=== PATIENT | male | born 1940 | race Caucasian/White ===

== ENCOUNTER 2025-02-12 15:43 | Inpatient (IN) | payer MEDICARE, SELFPAY ==
[2025-02-11 23:32] VITALS: BP 121/74
[2025-02-12] VITALS (19 sets, daily range): BP systolic 91–126; BP diastolic 59–82; PULSE 101–110; O2SAT 94; BMI 22.4
--- NOTE | 2025-02-12 00:36 | ED.GENMED ---
History of Present Illness
General
Chief Complaint: Catheter/Tube Problem
Source: patient and records
Exam Limitations: altered mental status and dementia
Time Seen by Provider: 02/11/25 23:51
Nursing documentation reviewed up to this point in time: agreed with
History of Present Illness
History of Present Illness:
85-year-old male from local group home presents with a dislodged Ambriz catheter report was workup nursing found him to be in a wide tachycardic rhythm apparently has an AICD, prior records from here reviewed never been at [facility] before patient
not really able to offer much history
RN reports that the catheters been out for about 20 hours, she was able to replace it without any difficulty, has had 2 episodes of emesis here, apparently amiodarone has been held,
Past History
Past History
ED Past Medical History: Arrthythmia and HTN
Social History
Tobacco: Non-smoker
Alcohol: None
Drug: None
Living: group home
Employment: Not employed
Review of Systems
Review of Systems
Other source history: transfer record
All Other Systems: Not applicable
Phy Exam
Physical Exam
Physical Exam:
Physical Exam
General: Elderly male chronically ill-appearing
Neck: Dry lips vomit on his henry
Heart: Tachycardic
Lungs: Basilar crackles
Abdomen: Nontender
Neuro: Confused
Skin: no rash
Psychiatric: Flat affect
Extremities: no edema.
Course
Orders/Labs/Results
Orders:
Orders
02/12/25 00:02
Ambriz Placement- Treatment ONCE
Reason for insertion: Outlet obstruction
02/12/25 00:31
Electrocardiogram (*1) Urgent
Reason for Study: Abdominal Pain
EKG- Treatment ONCE
02/12/25 00:36
Complete Blood Count/With Diff Urgent
Comprehensive Metabolic Panel Urgent
Magnesium Urgent
Troponin I Urgent
02/12/25 00:48
Lidocaine 2% [Lidocaine Uro-Jet 2%] 1 syringe .ROUTE .[facility]
02/12/25 01:20
CR Chest - 2 Views Urgent
Comment:
Reason For Exam: wbc count up
02/12/25 01:39
0.9% Sodium Chloride 1000 ml [Nss] 1,000 ml IV BOLUS
02/12/25 01:40
Magnesium Sulfate 1 G/D5w [Magnesium Sulfate] 1 gm in 100 ml IV NOW
02/12/25 01:41
Urinalysis Reflex To Culture Urgent
Date Specimen was Collected: 02/12/25
Time Specimen was Collected: 02:02
02/12/25 01:45
Blood Culture Q30M
JENSEN Source: Blood/Venous
Specimen Description:
02/12/25 02:15
Blood Culture Q30M
JENSEN Source: Blood/Venous
Specimen Description:
Abnormal Lab Results
02/12/25
00:36
WBC 23.5 H 10^3/uL
(4.8-10.8)
RBC 3.76 L 10^6/uL
(4.70-6.10)
Hgb 11.5 L g/dL
(13.0-18.0)
Hct 35.4 L %
(39.0-52.0)
MCV 94.1 H fL
(80.0-94.0)
MCHC 32.5 L g/dL
(33.0-37.0)
Abs Immat Gran (auto) 0.1 H 10^3/uL
(0-0.05)
Absolute Neuts (auto) 22.3 H 10^3/uL
(1.4-6.5)
Absolute Lymphs (auto) 0.5 L 10^3/uL
(1.2-3.4)
Neutrophils % 95.2 H %
(42.2-75.2)
Lymphocytes % 2.3 L %
(20.5-51.1)
BUN 31 H mg/dl
(9-20)
Creatinine 2.4 H mg/dL
(0.7-1.3)
Glucose 165 H mg/dl
(70-99)
Calcium 8.3 L mg/dl
(8.4-10.2)
Total Bilirubin 1.4 H mg/dl
(0.2-1.3)
Albumin 3.1 L g/dl
(3.5-5.0)
02/12/25 00:36
02/12/25 00:36
Vital Signs
Initial and Last Documented VS:
Initial Vital Signs
Temp Pulse Resp BP Pulse Ox
98.1 F 118 22 121/74 100
02/11/25 23:32 02/11/25 23:32 02/11/25 23:32 02/11/25 23:32 02/11/25 23:32
Last Documented Vital Signs
Temp Pulse Resp BP Pulse Ox
98.1 F 112 21 111/80 97
02/11/25 23:32 02/12/25 01:42 02/12/25 01:42 02/12/25 01:42 02/12/25 01:02
*Pulse Oximetry
SaO2: 97
Oxygen Mode of Delivery: Room air
Patient hypoxic: no
*EKG
Interpreted by ED Provider?: Yes
Interpretation: abnormal
Comparison EKG: no comparison EKG present
Heart Rate: 108
Rate: tachycardiac
Rhythm: other (Wide-complex SVT with aberrancy versus VT)
[place]: normal axis
Ischemia: non-specific ST changes
*Patent Drafter Interpretation
Rate: tachycardiac
Interpretation: abnormal
Heart Rate: 108
Rhythm: sinus
*Critical Care Note
Total Time (30-74mins, 75-104mins- exclusive of procedures): Not Applicable
Update Note
Update Note:
1:40 AM update blood pressure now in the 90s, creatinine noted white count noted will start saline hydration check chest x-ray urinalysis blood cultures
Apparently amiodarone was held recently, apparently patient is DNR status
White count up, interrogation received from Juv Acessórios
ED Attending Note
-
Portions of this chart may have been created with voice recognition software.� Occasional wrong word or��sound alike� substitutions may have occurred due to the inherent limitations of voice recognition software.
Discharge Plan
Departure
Patient Disposition: Admit
Date of Disposition: 02/12/25
Time of Disposition: 02:18
Admit to: Telemetry
Presentation/result/management discussed w/ accepting MD/DO: Hospitalist
Patient with high blood pressure during this ER visit?: No
Discharge Problem:
Leukocytosis, Tachycardia
Prescriptions:
No Action
sennosides [senna] 8.6 mg Tablet
17.2 mg PO HS
polyethylene glycol 3350 [Miralax] 17 gram Powder In Packet
17 g PO DAILY
midodrine 5 mg Tablet
15 mg PO TID
pantoprazole 20 mg Tablet,Delayed Release (Dr/Ec)
20 mg PO DAILY
metoprolol succinate 25 mg Tablet Extended Release 24 Hr
25 mg PO DAILY
fluticasone propionate 50 mcg/actuation [place],Suspension
2 spray INTRANASAL DAILY PRN (Reason: Reduction Of Transepidermal Water Loss)
fludrocortisone 0.1 mg Tablet
0.1 mg PO MOWEFR
finasteride 5 mg Tablet
5 mg PO DAILY
carboxymethylcellulose Granules
1 ea MISCELLANEOUS QID
Rx Instructions:
0.5%
dabigatran etexilate 150 mg Capsule
150 mg PO BID
Referrals:
Kennedy Alejandro, [Family Provider, Internal Medicine]
Interventions
Interventions:
*General Assessment Last Done: 02/11/25 23:30
*ED COVID-19 Vaccine History Last Done: 02/11/25 23:30
*ED Influenza Vaccine History Last Done: 02/11/25 23:30
[facility] Risk Assessment Tool Last Done: 02/12/25 01:00
*Risk Screen - Suicide (C-SSRS) Last Done: 02/11/25 23:32
AS-Ufnpmf-Urblhhzlbb Assessment Last Done: 02/11/25 23:30
ED-Male Genitourinary Assessment Last Done: 02/11/25 23:30
Discharge Date and Time
Print Language: NEPALI
[2025-02-12 01:08] LABS: Hematocrit 35.4 % (39.0-52.0); Hemoglobin 11.5 g/dL (13.0-18.0); Mean Corp Hgb Conc. 32.5 g/dL (33.0-37.0); Mean Corpuscular Volume 94.1 fL (80.0-94.0); Platelet Count 390 10^3/uL (130-400); Red Cell Dist. Width 13.6 % (11.5-14.5)
[2025-02-12 01:19] LABS: Troponin I 0.016 ng/ml
[2025-02-12 01:32] LABS: AST (SGOT) 22 U/L (17-59); Albumin 3.1 g/dl (3.5-5.0); Alkaline Phosphatase 98 U/L (38-126); Blood Urea Nitrogen 31 mg/dl (9-20); Calcium 8.3 mg/dl (8.4-10.2); Carbon Dioxide 24 mmol/L (22-30); Chloride 101 mmol/L (98-107); Glucose 165 mg/dl (70-99); Magnesium 1.7 mg/dl (1.6-2.3); Potassium 4.8 mmol/L (3.5-5.1); Sodium 136 mmol/L (135-145); Total Protein 6.5 g/dl (6.3-8.2); eGFR 26.12
[2025-02-12 01:39] LABS: ALT (SGPT) 21 U/L (0-50)
[2025-02-12 01:57] LABS: Nucleated Red Blood Cells % 0 % (-)
[2025-02-12] MEDS: NSS 1000 IV ×2 (02:23→11:06)
[2025-02-12] MEDS: MAGNESIUM SULFATE 100 IV (02:37)
[2025-02-12 03:00] LABS: Urine Character Cloudy (Clear)
--- NOTE | 2025-02-12 03:09 | HPS.HSE ---
Family Physician
-
Family Physician: Kennedy Alejandro, DO
Chief Complaint
-
Wide-complex tachycardia
History of Present Illness
Patient is a 84-year-old with past medical history significant for essential hypertension, cardiomyopathy, paroxysmal atrial fibrillation, status post biventricular AICD and defibrillator, on anticoagulation with dabigatran, BPH, orthostatic
hypotension brought to the emergency department after he pulled out his catheter at the [facility] [employer] [facility].
The nursing staff had difficulty inserting the urinary cath, patient had some bleeding after I pulled out the catheter. Was sent to the emergency department. With when he was being sent to the emergency department he was noticed to be in
wide-complex tachycardia.
Patient was recently admitted to [facility] [place] with obstructive uropathy status post placement of indwelling urinary catheter. He is to follow-up with urology. Was also found to be in orthostatic hypotension had medication changes including
discontinuation of amiodarone Jardiance losartan and tamsulosin. Patient was then placed on finasteride fludrocortisone and midodrine. He was continued on tamsulosin and Lasix was placed on hold. He was continued on metoprolol succinate and his
anticoagulation with dabigatran.
Patient was admitted to [facility] on 1222. At a time he was noted to have DEANDRE secondary to obstructive uropathy, BPH, chronic heart failure, GERD hyperlipidemia, cardiomyopathy, atrial fibrillation, known left bundle and orthostatic
hypotension.
In the emergency department blood pressure was 118/80 with a pulse rate of 112 and oxygen saturation of 97% on room air. ECG shows failure rate and rhythm with a rate of 125 wide-complex tachycardia. Suspect SVT with aberrancy, however no prior
ECGs for comparison. Troponin is negative. He does have a white count of 23 with normal movement and platelets. Electrolytes were normal. BUN and creatinine were 31 and 2.4 with no priors to compare. Glucose was normal.
Patient's UA was positive for leukocyte esterase and some blood but does have a urinary catheter. Chest x-ray is clear.
Medical History
Past Medical History
Past Medical History: Reports Other
Additional Past Medical History:
Atrial fibrillation on anticoagulation
Status post biventricular pacemaker and AICD
Cardiomyopathy
Essential hypertension
Orthostatic hypotension
BPH with obstructive uropathy status post indwelling urinary cath
History of syncope and collapse
History of sick sinus syndrome
Gout
DEANDRE on CKD
Past Surgical History: Reports Other
Social History
Tobacco: Non-smoker
Alcohol: Occasional
Drug: None
Living: [facility]
Family History
Family History: Not pertinent
Allergies / Home Medications
Allergies reflects when Allergies were last updated in [facility].
Home Medications with original date entered in [facility]
Allergy/Medication List:
Allergies
Allergy/AdvReac Type Severity Reaction Status Date / Time
YOHANA Inhibitors Allergy Unknown Verified 02/11/25 23:42
Home Medications
carboxymethylcellulose 1 ea miscellaneous QID 02/12/25
dabigatran etexilate 150 mg capsule 150 mg PO BID 02/12/25
finasteride 5 mg tablet 5 mg PO DAILY 02/12/25
fludrocortisone 0.1 mg tablet 0.1 mg PO MOWEFR 02/12/25
fluticasone propionate 50 mcg/actuation nasal spray,suspension 2 spray intranasal DAILY PRN Reduction Of Transepidermal Water Loss 02/12/25
metoprolol succinate 25 mg tablet,extended release 24 hr 25 mg PO DAILY 02/12/25
midodrine 5 mg tablet 15 mg PO TID 02/12/25
pantoprazole 20 mg tablet,delayed release 20 mg PO DAILY 02/12/25
polyethylene glycol 3350 17 gram oral powder packet (Miralax) 17 g PO DAILY 02/12/25
sennosides 8.6 mg tablet (senna) 17.2 mg PO HS 02/12/25
Review of Systems
-
Constitutional: Reports No Symptoms
EENT: Reports No Symptoms
Respiratory: Reports No Symptoms
Cardiac: Reports No Symptoms
Abdomen/GI: Reports No Symptoms
: Reports No Symptoms
Musculoskeletal: Reports No Symptoms
Skin: Reports No Symptoms
Neurological: Reports No Symptoms
Endocrine: Reports No Symptoms
Hematologic/Lymphatic: Reports No Symptoms
Psych: Reports No Symptoms
Physical Exam
Vital Signs
Vital Signs
Temp Pulse Resp BP Pulse Ox
98.1 F 112 21 111/80 97
02/11/25 23:32 02/12/25 01:42 02/12/25 01:42 02/12/25 01:42 02/12/25 01:02
Physical Exam
General: Well Developed, Well Nourished and No Apparent Distress
HEENT: NormoCephalic, Moist mucous membranes and Atraumatic
Respiratory: Clear
Cardiac: S1/S2, Irregular Rhythm and Tachycardia; No Murmur or Rub
GI: Soft, Non Tender, Non Distended and Normal Bowel Sounds; No Organomegaly
Rectal: Deferred by Provider
Genito-urinary: Ambriz
Musculoskeletal: No Clubbing, No Cyanosis and No Edema
Skin: No Rash
Neuro: Alert, Oriented (oriented to person, year and to place currently, slightly confused but able to follow instructions and following conversation. 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
No Slurred Speech or Facial Droop
Hematologic/Lymphatic: No Lymphadenopathy
Psych: Calm
Laboratory Results
-
02/12/25 00:36
02/12/25 00:36
Laboratory Results
Total Bilirubin 1.4 mg/dl (0.2-1.3) H 02/12/25 00:36
AST 22 U/L (17-59) 02/12/25 00:36
ALT 21 U/L (0-50) 02/12/25 00:36
Alkaline Phosphatase 98 U/L (38-126) 02/12/25 00:36
Troponin I 0.016 ng/ml 02/12/25 00:36
Data Reviewed
-
Diagnostic Radiology: Image Personally Visualized and interpreted
Medical Tests (Nuc Med, Echo, EKG etc): Image Personally Visualized and interpreted
Lab Data: Labs Reviewed by me
Old Records: Reviewed
Impression/Plan
-
IMPRESSION:
Disease a 85-year-old male who [facility] after pulling out his urinary cath development some bleeding and having difficulty with [facility] of [facility]. Had an episode of nausea
vomiting during the procedure. He is now in the emergency department and is noted to have a history of DEANDRE, obstructive uropathy status post chronic indwelling catheter, atrial fibrillation with left bundle branch block. In the ED he was found to
be in wide-complex tachycardia. ECG shows in the undetermined rhythm at a rate in the 125. Per my read and according to the interrogation of this AICD PPM he has a SVT with aberrancy likely secondary to atrial fibrillation. Notable findings chest
x-ray that is clear, leukocytosis to 23.5, UA with positive blood and trace leukocyte esterase but no active urinary symptoms, labs were unremarkable with a BUN and creatinine of 31 and 2.4. He was given magnesium in the ED. His rate is now in the
normal range but still irregular consistent with a atrial fibrillation. He is also intermittently paced.
PLAN:
Wide-complex tachycardia�suspect atrial fibrillation with intermittent pacing and known left bundle. No chest pain, troponin is negative. He denies any current dizziness or lightheadedness or while sitting or laying down
� Admit to telemetry observation
� It is of note that the patient amiodarone was discontinued on his recent admission and the reason is unclear, he was taken to 100 mg daily, metoprolol was changed and is now currently taking 12.5 mg daily
� It is possible that the changes seen in his medications has resulted in increased rate
� Will continue his metoprolol 12.5 mg p.o. for now
� Continue to hold the amiodarone
� Continue dabigatran 5 150 mg twice daily for now
� Cardiology consultation
Leukocytosis�patient with a white count of 23.5,
� Urine culture sent
� Blood culture sent
� Patient is afebrile, has no acute urinary symptoms and chest x-ray is clear
� I am not seeing a source of an active infection at this time, we will hold off on antibiotics
CHF
� Patient did receive 1 L of normal saline on arrival
� Continue to hold furosemide for now
� Continue to hold losartan
� Continue metoprolol as above
Orthostatic hypotension
� Continue fludrocortisone and midodrine
DVT prophylaxis�on dabigatran
CODE STATUS�full code
[2025-02-12 05:29] LABS: Urine Red Blood Cell >100 /HPF (0-2); Urine White Cell >100 /HPF (0-5)
--- NOTE | 2025-02-12 05:34 | PTCARENOTE ---
received pt from ED. pt pulled over from stretcher to bed. pt A&O x 2, disoriented to place. pt offers no current complaints and appears comfortable in bed. bed alarm plugged in, call lindsey in reach. plan of care ongoing.
[2025-02-12 08:04] LABS: Hematocrit 30.8 % (39.0-52.0); Hemoglobin 10.2 g/dL (13.0-18.0); Mean Corp Hgb Conc. 33.1 g/dL (33.0-37.0); Mean Corpuscular Volume 92.5 fL (80.0-94.0); Platelet Count 311 10^3/uL (130-400); Red Cell Dist. Width 13.8 % (11.5-14.5)
[2025-02-12 08:12] LABS: Blood Urea Nitrogen 29 mg/dl (9-20); Calcium 7.9 mg/dl (8.4-10.2); Carbon Dioxide 24 mmol/L (22-30); Chloride 104 mmol/L (98-107); Estimated Creatinine Clearance 35 ml/min; Glucose 135 mg/dl (70-99); Magnesium 2.0 mg/dl (1.6-2.3); Potassium 4.5 mmol/L (3.5-5.1); Sodium 134 mmol/L (135-145); eGFR 36.89
[2025-02-12] MEDS: PROSCAR 5 MG PO (08:39)
[2025-02-12] MEDS: PROTONIX 20 MG PO (08:39)
[2025-02-12] MEDS: PRADAXA 150 MG PO ×2 (08:39→20:48)
[2025-02-12] MEDS: TOPROL XL 12.5 MG PO (08:40)
[2025-02-12] MEDS: MIRALAX 17 GRAMS PO (08:40)
[2025-02-12] MEDS: FLORINEF 0.1 MG PO (08:41)
--- NOTE | 2025-02-12 09:49 | CON.CAR ---
Addendum entered and electronically signed by Brenda Redd MD 02/12/25 11:08:
I saw and examined the patient.
The Rn Liaison's note was reviewed and I agree with the note.
Comment: Patient undergoing echocardiogram when I evaluated him. He is unable to give a history. History obtained from medical records and also from his sister. He presented to the emergency department with issues regarding his Johnson catheter.
He has had a hospital stay at [facility] for which we requested records. He has ICD in place. Atrial fibrillation which is paroxysmal on oral anticoagulation. Recently amiodarone has been discontinued, unclear why. Ejection fraction unknown if
patient undergoing echo. Consult for wide-complex tachycardia which is atrial fibrillation with increased rates. No ventricular tachycardia noted on [employer] biventricular ICD download/check.
Of note he has history of severe orthostasis.
Atrial fibrillation with rapid ventricular response
Continue oral anticoagulation
Continue low-dose Toprol-XL
Obtain records from line cannot discharge there is no listed allergy to amiodarone on records that we can find. Start amiodarone 200 mg orally twice daily for rate control of atrial arrhythmia
Orthostatic hypotension
Continue supportive care with midodrine and Florinef
Follow volume status
Caution with changing position
Chronic heart failure with unknown ejection fraction
Await echocardiogram
Biventricular ICD
Interrogation reviewed
Ongoing urologic issues and renal insufficiency
Original Note:
Consultation
Consultation Request
Date/Time Consultation Requested: 02/12/25
Date/Time Consultation Performed: 02/12/25
Requesting Provider:
Performing Provider: Deisy Rdz PA-C for Dr. Brenda Redd
Reason for Consultation: Wide complex tachycardia
Medical History
-
History of Present Illness:
Patient is an 85-year-old male with past medical history significant for essential hypertension, cardiomyopathy, paroxysmal atrial fibrillation, status post biventricular AICD and defibrillator, on anticoagulation with dabigatran, BPH, orthostatic
hypotension brought to the emergency department 02/12/2025 from [facility] rehab after he pulled out his johnson catheter. Unfortunately patient is poor historian and unable to provide history at time of this evaluation. I did talk to his
sister Heidi over the phone who reports he became ill in early December with what she reports was GI illness with nausea vomiting and diarrhea. He was admitted to [facility] in late December and was found to have significant urinary
retention with obstructive uropathy. He resided there for several weeks until he was transferred to [facility] rehab 2 days ago to be closer to her. 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 Per review of
outpatient records patient was found to have obstructive uropathy requiring placement of indwelling Johnson catheter. He had DEANDRE and orthostatic hypotension with discontinuation of cardiac medications including Jardiance, losartan and tamsulosin.
Prior to his admissions he had been maintained on amiodarone and apparently this was discontinued as well during his recent hospitalization at [facility]. On presentation to emergency department he was found to have a bouts of wide-complex
tachycardia on telemetry. Troponin was negative. TSH, liver functions within normal limits. Mag found to be 1.7 and was repleted. His ICD was interrogated which shows he has been persistently in atrial fibrillation since early December 2024.
Per device he has had no ventricular events or ICD shocks. Chest x-ray showed no acute cardiopulmonary abnormality. Creatinine elevated at 2.4 on admission, patient was repleted with aggressive IV fluids with improvement of creatinine to 1.8 given
concern of tachycardia cardiology has been consulted
Past medical history:
Paroxysmal Atrial fibrillation on anticoagulation with Pradaxa
[employer] biventricular pacemaker and AICD
Cardiomyopathy
Chronic heart failure with unknown ejection fraction, presumed reduced
Essential hypertension
Orthostatic hypotension
BPH with obstructive uropathy status post indwelling urinary cath
History of syncope and collapse
History of sick sinus syndrome
Gout
CKD
Obstructive uropathy
Past Medical History
Past Medical History: Other (See HPI)
Past Surgical History: Cardiac ([employer] biV ICD)
Social History
Alcohol: Occasional
Drug: None
Personal:
Living: Alone
Family History
Family History: Unable to Obtain
Allergies / Home Medications
Allergy/AdvReac Type Severity Reaction Status Date / Time
YOHANA Inhibitors Allergy Unknown Verified 02/11/25 23:42
�Medication �Instructions �Recorded �Confirmed �Type
carboxymethylcellulose 1 ea miscellaneous QID 02/12/25 02/12/25 History
dabigatran etexilate 150 mg capsule 150 mg PO BID 02/12/25 02/12/25 History
finasteride 5 mg tablet 5 mg PO DAILY 02/12/25 02/12/25 History
fludrocortisone 0.1 mg tablet 0.1 mg PO MOWEFR 02/12/25 02/12/25 History
fluticasone propionate 50 2 spray intranasal DAILY PRN 02/12/25 02/12/25 History
mcg/actuation nasal Reduction Of Transepidermal Water
spray,suspension Loss
metoprolol succinate 25 mg 25 mg PO DAILY 02/12/25 02/12/25 History
tablet,extended release 24 hr
midodrine 5 mg tablet 15 mg PO TID 02/12/25 02/12/25 History
pantoprazole 20 mg tablet,delayed 20 mg PO DAILY 02/12/25 02/12/25 History
release
polyethylene glycol 3350 17 gram 17 g PO DAILY 02/12/25 02/12/25 History
oral powder packet (Miralax)
sennosides 8.6 mg tablet (senna) 17.2 mg PO HS 02/12/25 02/12/25 History
Review of Systems
-
Unable to obtain full review of systems at this time due to: Acuity
History Source: Family (Sister), Correction, Transfer Record and Coordinating Provider
Physical Exam
Vital Signs
GEN: No distress, awake, Ox3
Temp Pulse Resp BP Pulse Ox
100.3 F 105 16 98/65 94
02/12/25 07:45 12/24/25 07:45 02/12/25 07:45 02/12/25 08:39 02/12/25 07:45
GEN: No distress, lying in bed, arousable but falls asleep
HEENT: supple, anicteric, mmm
LUNGS: CTA, no wheezes/rales
CV: Irregularly irregular, S1/S2, 1/6 syst murmur
ABD: soft, BS+, NT/ND
EXT: No edema, clubbing or cyanosis
NEURO: Lethargic, unable to assess as patient not cooperative
SKIN: No rash warm, dry, pink
Lab Results
02/12/25 06:42
02/12/25 06:42
Troponin I 0.016 ng/ml 02/12/25 00:36
Impression / Plan
-
PCP: Kennedy Alejandro, DO
[facility]
Impression:
Presented 02/12/2025 with dislodged Johnson catheter from longterm
Leukocytosis/fever
Hematuria
UTI
Obstructive uropathy
DEANDRE on CKD
Hypomagnesemia
Paroxysmal atrial fibrillation with rapid ventricular response
Recent admission to [facility] for obstructive uropathy/UTI January 2025
Paroxysmal Atrial fibrillation on anticoagulation with Pradaxa
[employer] biventricular pacemaker and AICD
Cardiomyopathy
Chronic heart failure with unknown ejection fraction, presumed reduced
Essential hypertension
Orthostatic hypotension
BPH with obstructive uropathy status post indwelling urinary cath
History of syncope and collapse
History of sick sinus syndrome
Gout
CKD
Obstructive uropathy
Echo 02/12/2025: Ordered
Plan:
-Presented 02/12/2025 with dislodged Johnson catheter from [facility] home after recent admission to [facility] with obstructive uropathy/UTI/DEANDRE in January 2025
-Leukocytosis/fever with Hematuria with concern for UTI with obstructive uropathy. Johnson has been replaced. Ongoing antibiotic treatment per primary service
-Per review of records from collaborating care providers patient has history of paroxysmal atrial fibrillation. Found to have wide-complex tachycardia in emergency department.
-Has [employer] BiV ICD device interrogated 02/12/2025 which shows patient has persistently been in atrial fibrillation since early December 2024 which correlates with when patient started with GI illness. Per device no evidence of any
sustained ventricular arrhythmias or ICD shocks
-Patient previously had been on amiodarone which reportedly was discontinued during his recent hospitalization at [facility]. Unclear reasons why. Records have been requested.
-Continues to have bouts atrial fibrillation with rapid ventricular response on telemetry. LFTs and TSH within normal limits this admission. Would resume amiodarone with load. Will need close monitoring of QTc
-Patient on chronic anticoagulation with Pradaxa. Unclear if this was held during his recent hospitalization at [facility]. Therefore would attempt rate control
-History of presumed nonischemic cardiomyopathy although unclear. GDMT now being limited by DEANDRE and hypotension. Now on low-dose Toprol. Uptitrate as blood pressure allows. Hopeful/eventual resumption of YOHANA/ARB/ARNI and/or SGLT2 inhibitor if
blood pressure and renal function allow
-Creatinine initially 2.4 on admission. Patient underwent aggressive IV fluid resuscitation with improvement of creatinine to 1.8 on 02/12/2025. Would be cautious not to give excessive volume given history of cardiomyopathy and presumed reduced
ejection fraction
-Continue to monitor and trend electrolytes, keep K greater than 4, mag greater than 2
-I personally have made multiple attempts to obtain patient's outpatient records from his crusher screen repairer as well as [facility] without success. Ongoing attempts to get records to help clarify patient's prior cardiac history
HPI 02/12/2025:
Patient is an 85-year-old male with past medical history significant for essential hypertension, cardiomyopathy, paroxysmal atrial fibrillation, status post biventricular AICD and defibrillator, on anticoagulation with dabigatran, BPH, orthostatic
hypotension brought to the emergency department 02/12/2025 from [facility] after he pulled out his johnson catheter. Unfortunately patient is poor historian and unable to provide history at time of this evaluation. I did talk to his
sister Heidi over the phone who reports he became ill in early December with what she reports was GI illness with nausea vomiting and diarrhea. He was admitted to [facility] in late December and was found to have significant urinary
retention with obstructive uropathy. He resided there for several weeks until he was transferred to [facility] rehab 2 days ago to be closer to her. 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 Per review of
outpatient records patient was found to have obstructive uropathy requiring placement of indwelling Johnson catheter. He had DEANDRE and orthostatic hypotension with discontinuation of cardiac medications including Jardiance, losartan and tamsulosin.
Prior to his admissions he had been maintained on amiodarone and apparently this was discontinued as well during his recent hospitalization at [facility]. On presentation to emergency department he was found to have a bouts of wide-complex
tachycardia on telemetry. Troponin was negative. TSH, liver functions within normal limits. Mag found to be 1.7 and was repleted. His ICD was interrogated which shows he has been persistently in atrial fibrillation since early December 2024.
Per device he has had no ventricular events or ICD shocks. Chest x-ray showed no acute cardiopulmonary abnormality. Creatinine elevated at 2.4 on admission, patient was repleted with aggressive IV fluids with improvement of creatinine to 1.8 given
concern of tachycardia cardiology has been consulted
Data Reviewed
-
EKG: Report Reviewed by me, Discussed with Physician, Discussed with Nurse, Discussed with Patient and Discussed with Family
Radiology: Report Reviewed by me, Discussed with Physician, Discussed with Nurse, Discussed with Patient and Discussed with Family
Labs: Labs Reviewed by me, Discussed with Physician, Discussed with Nurse, Discussed with Patient and Discussed with Family
Old Records: Requested
Total Time Spent with Patient (in minutes): 79 minutes
--- NOTE | 2025-02-12 10:01 | W.PN.HOSP.TC ---
Today's Communication/Plan
-
See plan
Assessment / Plan
Assessment / Plan
Impression:
85 years old male with extensive past medical history presented from local nursing facility with dislodged Ambriz catheter. With difficulties of Ambriz catheter placement patient sent to the emergency room for evaluation. While in the emergency
department Ambriz catheter has been replaced. On further evaluation patient was found to be febrile. He is EKG and rhythm strip were concerning for wide-complex tachycardia although with further evaluation patient was found to be in A-fib with V
paced rhythm.
Catheter associated urinary tract infection.
A-fib with RVR in the settings of fever
Acute kidney injury
TME in the settings of fever/UTI
Other conditions.
Cardiomyopathy unknown type.
Status post AICD/PPM
Paroxysmal atrial fibrillation
Systemic anticoagulation with dabigatran
Essential hypertension.
Orthostatic hypotension
BPH with chronic bladder outlet obstruction and Ambriz catheter
Plan
Catheter associated urinary tract infection.
Febrile and tachycardic with soft BP.
Concern for evolving sepsis.
Presents with dislodged Ambriz catheter., Replaced in ED.
Blood cultures pending
Urine cultures pending
Check renal and bladder ultrasound.
Start empiric antibiotics/Zosyn pending cultures
Consider urology evaluation depends on clinical course and findings on imaging.
Continue finasteride. Reported recently taken off Flomax given hypotension
DEANDRE
Unknown baseline
US renal pending
Urine sodium pending
Challenge with isotonic solution
Avoid hypotension
Continue midodrine and fludrocortisone
Check serum cortisol level
Follow BMP in response to fluid bolus
Cardiomyopathy unknown type.
Reported recent medication changes in regards to orthostatic hypotension.
Echocardiogram
Continue metoprolol.
Attempt to obtain outpatient medical records.
Cardiology evaluation.
Paroxysmal A-fib.
Status post AICD PPM.
In review of outpatient tracing noted A-fib since December. Reported recently taken off of amiodarone.
So far with no evidence of ventricular tachycardia.
Consider to reinstate amiodarone
Continue metoprolol.
Continue anticoagulation with Pradaxa.
TME possibly multifactorial in the settings of fever, infection, DEANDRE.
Lethargic, although cooperative with basic questions and examination. No focal findings on exam.
Monitor closely since
DVT prophylaxis/Pradaxa
Full code
Anticipated Discharge: > 48 hours
Subjective/Interval History
-
Date of Service: February 12, 2025
Objective Data
-
Labs:
Laboratory Results
02/12/25 02/12/25
00:36 06:42
WBC 23.5 H 16.4 H
Hgb 11.5 L 10.2 L
Hct 35.4 L 30.8 L
Plt Count 390 311 D
Sodium 136 134 L
Potassium 4.8 4.5
Chloride 101 104
Carbon Dioxide 24 24
BUN 31 H 29 H
Creatinine 2.4 H 1.8 H
Glucose 165 H 135 H
Calcium 8.3 L 7.9 L
Total Bilirubin 1.4 H
AST 22
ALT 21
Alkaline Phosphatase 98
Vital Signs:
Vital Signs
Temp Pulse Resp BP Pulse Ox
100.3 F 105 16 98/65 94
02/12/25 07:45 02/12/25 07:45 02/12/25 07:45 02/12/25 08:39 02/12/25 07:45
I&O
02/11/25 02/12/25 02/13/25
06:59 06:59 06:59
Output Total 800 / 800
Balance -800 / -800
Physical Exam
-
General: Well Developed and No Apparent Distress
HEENT: Normocephalic, Atraumatic and Moist Mucous Membranes
Respiratory: Clear to Auscultation
Cardiac: Regular Rhythm and S1/S2; Negative Murmur, Rub or Gallop
GI: Soft, Nontender, Nondistended and Normal Bowel Sounds; Negative Organomegaly
Rectal: Deferred by Provider
Genito-urinary: Ambriz
Musculoskeletal: No Clubbing, No Cyanosis and No Edema
Skin: Negative Rash
Neuro: Nonfocal/Grossly Intact and Other (Lethargic with poor communication)
[2025-02-12 10:19] LABS: Iron < 20 ug/dl (49-181)
[2025-02-12 10:26] LABS: Total Iron Binding Capacity 190 ug/dl (261-462)
[2025-02-12 10:49] LABS: Cortisol, Random 52.2 ug/dl
[2025-02-12 11:08] LABS: Vitamin B12 689 pg/ml (239-931)
[2025-02-12] MEDS: ZOSYN 50 IV ×3 (11:12→21:07)
[2025-02-12] MEDS: TYLENOL 650 MG PO (11:12)
[2025-02-12] MEDS: PACERONE 200 MG PO ×2 (12:22→20:48)
[2025-02-12] MEDS: SENOKOT 17.2 MG PO (21:05)
[2025-02-13] MEDS: NSS 1000 IV ×2 (00:32→15:41)
[2025-02-13 03:27] VITALS: BP 101/73
[2025-02-13] MEDS: ZOSYN 50 IV ×2 (05:03→10:05)
[2025-02-13 06:00] VITALS: BMI 22.3
[2025-02-13 07:15] VITALS: BP 108/64
[2025-02-13 07:28] LABS: Hematocrit 26.3 % (39.0-52.0); Hemoglobin 8.8 g/dL (13.0-18.0); Mean Corp Hgb Conc. 33.5 g/dL (33.0-37.0); Mean Corpuscular Volume 93.3 fL (80.0-94.0); Nucleated Red Blood Cells % 0 % (-); Platelet Count 254 10^3/uL (130-400); Red Cell Dist. Width 13.6 % (11.5-14.5)
[2025-02-13 07:59] LABS: Blood Urea Nitrogen 32 mg/dl (9-20); Calcium 7.5 mg/dl (8.4-10.2); Carbon Dioxide 26 mmol/L (22-30); Chloride 105 mmol/L (98-107); Estimated Creatinine Clearance 57 ml/min; Glucose 87 mg/dl (70-99); Potassium 4.1 mmol/L (3.5-5.1); Sodium 134 mmol/L (135-145); eGFR > 60.00
[2025-02-13] MEDS: MIRALAX 17 GRAMS PO (09:00)
[2025-02-13] MEDS: PACERONE 200 MG PO ×2 (09:00→21:05)
[2025-02-13] MEDS: TOPROL XL 12.5 MG PO (09:00)
[2025-02-13] MEDS: PROSCAR 5 MG PO (09:00)
[2025-02-13] MEDS: PRADAXA 150 MG PO ×2 (09:01→21:04)
[2025-02-13] MEDS: PROTONIX 20 MG PO (09:01)
--- NOTE | 2025-02-13 09:08 | W.PN.CARDCBS ---
Today's Communication / Plan
-
Maintain amio
Impression / Plan
-
PCP: Kennedy Alejandro DO
Rad Technologist [facility]
Impression:
Presented 02/12/2025 with dislodged Johnson catheter from [facility]
Leukocytosis/fever
Hematuria
UTI
Obstructive uropathy
DEANDRE on CKD
Hypomagnesemia
Paroxysmal atrial fibrillation with rapid ventricular response
Recent admission to [facility] for obstructive uropathy/UTI January 2025
Paroxysmal Atrial fibrillation on anticoagulation with Pradaxa
[employer] biventricular pacemaker and AICD
Cardiomyopathy
Chronic heart failure with unknown ejection fraction, presumed reduced
Essential hypertension
Orthostatic hypotension
BPH with obstructive uropathy status post indwelling urinary cath
History of syncope and collapse
History of sick sinus syndrome
Gout
CKD
Obstructive uropathy
Echo 02/12/2025:
1. Left ventricular ejection fraction is mildly reduced with an ejection fraction of 46 %.
2. Moderate concentric left ventricular hypertrophy.
3. Mild to moderate mitral valve regurgitation.
4. Mild tricuspid regurgitation. Estimated pulmonary artery pressure of 34 mmHg assuming a right atrial pressure of 8 mmHg.
5. Ascending aorta is mildly dilated.
Plan:
Presented 02/12/2025 with dislodged Johnson catheter from [facility] after recent admission to [facility] with obstructive uropathy/UTI/DEANDRE in January 2025.
On presentation to [facility], he is additionally found to be febrile.
There is known h/o atrial fibrillation. He is maintained on oral anticoagulation. Records indicate amiodarone was recently discontinued but were not sure why.
He does have a [employer]ENT [employer]OR defibrillator.
Cardiology consulted regarding wide-complex tachycardia which is actually atrial fibrillation rapid ventricular rates
Interrogation of his ICD confirms no sustained ventricular arrhythmias and no recent ICD therapies
Atrial fibrillation with rapid ventricular response
Continue oral anticoagulation (dabigatran 150 mg twice daily)
Continue low-dose Toprol-XL
Obtain / review records from [facility] when available.
No known allergy/intolerance to amiodarone therefore we started amiodarone 200 mg orally twice daily which will provide some rate control of atrial arrhythmia
Orthostatic hypotension has limited use of beta-blockers and calcium channel blockers.. Maintain current low-dose metoprolol succinate at 12.5 mg daily
Regarding orthostatic hypotension
Continue supportive care with midodrine and Florinef
Follow volume status
Caution with changing position
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
Maintain metoprolol succinate 12.5 mg daily
GDMT now being limited by DEANDRE and hypotension. Currently not on YOHANA-I/ARB/ARNI or SGLT2
Eventual consideration for initiation and uptitration of guideline directed medical therapy as blood pressure and renal function allows
Biventricular ICD
Anemia with hemoglobin trending down 11.5 -> 10.2 -> 8.8
Further evaluation and management as per primary service
Is currently receiving oral anticoagulation, DAPT Mandy 150 mg p.o. twice daily
Urosepsis
On antibiotics
Toxic metabolic encephalopathy
Seems improved this morning
DEANDRE
Improved, creatinine down to 1.1 today
Total time 50 min
HPI 02/12/2025:
Patient is an 85-year-old male with past medical history significant for essential hypertension, cardiomyopathy, paroxysmal atrial fibrillation, status post biventricular AICD and defibrillator, on anticoagulation with dabigatran, BPH, orthostatic
hypotension brought to the emergency department [facility] he [facility] out his johnson catheter. Unfortunately patient is poor historian and unable to provide history at time of this evaluation. I did talk to his
sister Heidi over the phone who reports he became ill in early December with what she reports was GI illness with nausea vomiting and diarrhea. He was admitted to [facility] in late December and was found to have significant urinary
retention with obstructive uropathy. He resided there for several weeks until he was transferred to [facility] rehab 2 days ago to be closer to her. 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 Per review of
outpatient records patient was found to have obstructive uropathy requiring placement of indwelling Johnson catheter. He had DEANDRE and orthostatic hypotension with discontinuation of cardiac medications including Jardiance, losartan and tamsulosin.
Prior to his admissions he had been maintained on amiodarone and apparently this was discontinued as well during his recent hospitalization at [facility]. On presentation to emergency department he was found to have a bouts of wide-complex
tachycardia on telemetry. Troponin was negative. TSH, liver functions within normal limits. Mag found to be 1.7 and was repleted. His ICD was interrogated which shows he has been persistently in atrial fibrillation since early December 2024.
Per device he has had no ventricular events or ICD shocks. Chest x-ray showed no acute cardiopulmonary abnormality. Creatinine elevated at 2.4 on admission, patient was repleted with aggressive IV fluids with improvement of creatinine to 1.8 given
concern of tachycardia cardiology has been consulted
Progress Note - Rad Technologist
Subjective
Date of Service: February 13, 2025
He tells me that he feels ' okay' denies chest pain shortness of breath palpitations and dizziness
Objective
Labs:
02/13/25 06:07
02/13/25 06:07
Labs
Hgb 8.8 g/dL (13.0-18.0) L 02/13/25 06:07
Hct 26.3 % (39.0-52.0) L 02/13/25 06:07
Plt Count 254 10^3/uL (130-400) 02/13/25 06:07
Sodium 134 mmol/L (135-145) L 02/13/25 06:07
Potassium 4.1 mmol/L (3.5-5.1) 02/13/25 06:07
BUN 32 mg/dl (9-20) H 02/13/25 06:07
Creatinine 1.1 mg/dL (0.7-1.3) 02/13/25 06:07
Glucose 87 mg/dl (70-99) 02/13/25 06:07
Troponins
02/12/25
00:36
Troponin I 0.016
Vital Signs and I&O:
Vital Signs
Temp Pulse Resp BP Pulse Ox
98.4 F 94 16 108/64 96
02/13/25 07:15 02/13/25 07:15 02/13/25 07:15 02/13/25 07:15 02/13/25 07:15
Vital Signs
Temp Pulse Resp BP Pulse Ox
98.4 F 94 16 108/64 96
02/13/25 07:15 02/13/25 07:15 02/13/25 07:15 02/13/25 07:15 02/13/25 07:15
Intake & Output
02/11/25 02/12/25 02/13/25 02/14/25
06:59 06:59 06:59 06:59
Intake Total 1999 / 1999
Output Total 800 / 800 950 / 950
Balance -800 / -800 1050 / 1050
Physical Exam
Physical Exam
Well-appearing, no acute distress
Irregular rate and rhythm with normal S1 and S2, no S3 no S4 there is a grade 1/6 apical holosystolic murmur no rubs
Lungs reduced breath sounds but otherwise clear bilaterally
Abdomen soft nontender nondistended with normoactive bowel sound
Extremities with trace pretibial edema bilateral
[2025-02-13 11:05] VITALS: BP 109/65
[2025-02-13] MEDS: STERILE WATER FOR INJECTION 20 ML IV (12:19)
[2025-02-13] MEDS: ROCEPHIN 2000 MG IV (12:19)
--- NOTE | 2025-02-13 13:07 | W.PN.HOSP.TC ---
Today's Communication/Plan
-
Continue antibiotics
Await records
Continue PT/OT
Await cultures
Assessment / Plan
Assessment / Plan
Gen-awake, alert, NAD, not oriented
HEENT-NC, AT, anicteric, clear oral mm
Neck-supple
CV-reg, no M, +S1/S2
Lungs-clear B/L
Abd-soft, NT, ND
Ext-no edema
Musculoskeletal-no cyanosis, clubbing
Skin-warm and dry
Neuro-grossly non-focal
Psych-calm, cooperative
Acute TME -due to sepsis, UTI. Has baseline dementia, not formally diagnosed. Discussed with sister.
Sepsis due to catheter associated UTI -sepsis present on admission. Sepsis presented with DEANDRE, leukocytosis, positive blood and urine cultures for Proteus.
Hemodynamically stable and improving. WBCs trending down. Afebrile.
Continue antibiotics and will change to ceftriaxone. Await speciation and sensitivity.
Suspect UTI triggered by dislodgment of chronic Ambriz catheter. Ambriz catheter replaced in the emergency room on arrival.
Rapid atrial fibrillation/paroxysmal atrial fibrillation -rates now improved. Initiated on amiodarone, will continue per cardiology. Continue Pradaxa.
TSH 0.62.
DEANDRE -suspect due to sepsis, volume depletion. Improving.
Hyponatremia -134, monitor for now.
Acute on chronic anemia -hemoglobin 11.5 on admission, 8.8 today. No evidence of bleeding clinically. Stools have been brown. Check anemia labs. Monitor for now.
Chronic heart failure -unknown EF. Stable.
Chronic orthostatic hypotension -continue fludrocortisone, midodrine. Add TEDs stockings.
ICD
Essential hypertension -stable.
Chronic urinary retention/BPH -maintain Ambriz catheter.
Dementia -unknown type. Will need outpatient follow-up and evaluation. Patient's sister mentioned that he has had progressive memory loss over the past 6 months.
Full code
Dispo -SNF when medically stable.
Updated sister Heidi on the phone. She mentioned that Ricardo was admitted to [facility] January 24 with complaints of vomiting and confusion. Stayed for 2 weeks then went to rehab in [place] on February 10. Records from [facility]
Hospital have been requested.
Anticipated Discharge: > 48 hours
Subjective/Interval History
-
Date of Service: February 13, 2025
Patient seen and examined. No complaints.
Objective Data
-
Labs:
Laboratory Results
02/13/25
06:07
WBC 12.5 H
Hgb 8.8 L
Hct 26.3 L
Plt Count 254
Sodium 134 L
Potassium 4.1
Chloride 105
Carbon Dioxide 26
BUN 32 H
Creatinine 1.1
Glucose 87
Calcium 7.5 L
Vital Signs:
Vital Signs
Temp Pulse Resp BP Pulse Ox
98.9 F 87 16 109/65 95
02/13/25 11:05 02/13/25 11:05 02/13/25 11:05 02/13/25 11:05 02/13/25 11:05
I&O
02/12/25 02/13/25 02/14/25
06:59 06:59 06:59
Intake Total 1999 / 1999
Output Total 800 / 800 950 / 950
Balance -800 / -800 1050 / 1050
Review of Systems
-
History Source: Patient
All other systems: Reviewed and negative
--- NOTE | 2025-02-13 13:25 | CM ---
Pt admitted from [facility]. CM spoke with Velvet who advised that Ricardo is new to the facility, so she is not certain about his prior level of function or living situation before admission.
Pt was hospitalized due to pulling out his johnson, now being treated for sepsis.
Plan: Call placed to pt's sister and VM left requesting call back to CM to discuss pt's prior living situation and chcf planning.
[2025-02-13 15:20] VITALS: BP 105/68
[2025-02-13 15:53] LABS: Ferritin 315.0 ng/ml (17.9-464.0)
[2025-02-13 16:24] LABS: Folate 6.4 ng/ml (2.76-20)
[2025-02-13 19:10] VITALS: BP 120/76
[2025-02-13] MEDS: SENOKOT 17.2 MG PO (21:05)
[2025-02-13 23:28] VITALS: BP 108/71
[2025-02-14] VITALS (8 sets, daily range): BP systolic 92–135; BP diastolic 55–85; PULSE 87–102; O2SAT 94–98; BMI 22.5
[2025-02-14 07:31] LABS: Hematocrit 25.9 % (39.0-52.0); Hemoglobin 8.7 g/dL (13.0-18.0); Mean Corp Hgb Conc. 33.6 g/dL (33.0-37.0); Mean Corpuscular Volume 94.2 fL (80.0-94.0); Nucleated Red Blood Cells % 0 % (-); Platelet Count 226 10^3/uL (130-400); Red Cell Dist. Width 13.6 % (11.5-14.5)
[2025-02-14 07:58] LABS: Blood Urea Nitrogen 21 mg/dl (9-20); Calcium 7.5 mg/dl (8.4-10.2); Carbon Dioxide 26 mmol/L (22-30); Chloride 103 mmol/L (98-107); Estimated Creatinine Clearance 70 ml/min; Glucose 85 mg/dl (70-99); Potassium 3.6 mmol/L (3.5-5.1); Sodium 135 mmol/L (135-145); eGFR > 60.00
[2025-02-14] MEDS: PROTONIX 20 MG PO (08:21)
[2025-02-14] MEDS: PRADAXA 150 MG PO ×2 (08:21→20:21)
[2025-02-14] MEDS: PROSCAR 5 MG PO (08:21)
[2025-02-14] MEDS: MIRALAX 17 GRAMS PO (08:21)
[2025-02-14] MEDS: PACERONE 200 MG PO ×2 (08:22→20:23)
[2025-02-14] MEDS: TOPROL XL 12.5 MG PO (08:22)
[2025-02-14] MEDS: FLORINEF 0.1 MG PO (08:22)
--- NOTE | 2025-02-14 10:05 | W.PN.CARDCBS ---
Addendum entered and electronically signed by Vishal Keen MD 02/14/25 11:59:
I saw and examined the patient.
The Graphics Software Engineer's note was reviewed and I agree with the note.
Comment: Briefly, 85-year-old man paroxysmal atrial fibrillation who presented with dislodged Johnson catheter. Cardiology was consulted for evaluation of atrial fibrillation and orthostatic hypotension.
No cardiac complaints today at the time of my evaluation
Heart rates were initially elevated in atrial fibrillation
By review of telemetry heart rate is at goal less than 110 bpm
Would continue metoprolol XL 12.5 mg daily with amiodarone 200 mg twice daily for adjunct rate control
Continue Pradaxa for risk reduction of cardioembolic stroke
Chronically on midodrine and Florinef for orthostatic hypotension which have been continued here
Stable for discharge from my perspective. He should follow-up with his primary ell teacher at [facility].
Original Note:
Today's Communication / Plan
-
Continue amiodarone 200mg BID, Toprol 12.5 mg daily. HR improved
Continue Pradaxa 150mg BID
Continue miodrine, florinef
Follow up w/ cardiology at [facility]
Impression / Plan
-
PCP: Kennedy Alejandro, DO
Cloth Worker: [facility]
Impression:
Presented 02/12/2025 with dislodged Johnson catheter from senior care
Leukocytosis/fever
Hematuria
UTI
Obstructive uropathy
DEANDRE on CKD
Hypomagnesemia
Paroxysmal atrial fibrillation with rapid ventricular response
Recent admission to [facility] for obstructive uropathy/UTI January 2025
Paroxysmal Atrial fibrillation on anticoagulation with Pradaxa
[employer] biventricular pacemaker and AICD
Cardiomyopathy
Chronic heart failure with unknown ejection fraction, presumed reduced
Essential hypertension
Orthostatic hypotension
BPH with obstructive uropathy status post indwelling urinary cath
History of syncope and collapse
History of sick sinus syndrome
Gout
CKD
Obstructive uropathy
Echo 02/12/2025: EF 46%, moderate cLVH, mild to moderate MR, mild TR, estimated PAP 34 mmHg
Plan:
-Presented with dislodged Johnson catheter and fever, admitted w/ UTI and DEANDRE
-Also w/ rapid atrial fibrillation on arrival. Known h/o atrial fibrillation.
-Restarted on amiodarone 200mg BID and HRs improved. Also on low dose Toprol 12.5mg daily, however hypotension/orthostasis limits uptitration.
-Continue Pradaxa 150mg BID for anticoagulation. Hgb stable overnight at 8.7. Continue to follow.
-BPs overall stable on midodrine and Florinef. Continue to use caution w/ changing position.
-Device check without evidence of ventricular arrhythmias.
-Appears euvolemic. Not on standing dose of diuretic.
-Continue GDMT as BP/renal function allows. On Toprol alone. Currently not on YOHANA-I/ARB/ARNI or SGLT2. Creat improving, down to 0.9.
-Continue abx for UTI per primary service
-Should follow up w/ primary ell teacher at [facility] at discharge.
HPI 02/12/2025: Patient is an 85-year-old male with past medical history significant for essential hypertension, cardiomyopathy, paroxysmal atrial fibrillation, status post biventricular AICD and defibrillator, on anticoagulation with dabigatran,
BPH, orthostatic hypotension brought to the emergency department 02/12/2025 [facility] after he pulled out his johnson catheter. Unfortunately patient is poor historian and unable to provide history at time of this evaluation. I
did talk to his sister Heidi over the phone who reports he became ill in early December with what she reports was GI illness with nausea vomiting and diarrhea. He was admitted to [facility] in late December and was found to have
significant urinary retention with obstructive uropathy. He resided there for several weeks until he was transferred to [facility] rehab 2 days ago to be closer to her. She reports his ell teacher is at [facility]
([phone]. Per review of outpatient records patient was found to have obstructive uropathy requiring placement of indwelling Johnson catheter. He had DEANDRE and orthostatic hypotension with discontinuation of cardiac medications including
Jardiance, losartan and tamsulosin. Prior to his admissions he had been maintained on amiodarone and apparently this was discontinued as well during his recent hospitalization at [facility]. On presentation to emergency department he was found to
have a bouts of wide-complex tachycardia on telemetry. Troponin was negative. TSH, liver functions within normal limits. Mag found to be 1.7 and was repleted. His ICD was interrogated which shows he has been persistently in atrial fibrillation
since early December 2024. Per device he has had no ventricular events or ICD shocks. Chest x-ray showed no acute cardiopulmonary abnormality. Creatinine elevated at 2.4 on admission, patient was repleted with aggressive IV fluids with
improvement of creatinine to 1.8 given concern of tachycardia cardiology has been consulted
Progress Note - Cloth Worker
Subjective
Date of Service: February 14, 2025
No complaints this AM
Objective
Labs:
02/14/25 06:31
02/14/25 06:31
Labs
Hgb 8.7 g/dL (13.0-18.0) L 02/14/25 06:31
Hct 25.9 % (39.0-52.0) L 02/14/25 06:31
Plt Count 226 10^3/uL (130-400) 02/14/25 06:31
Sodium 135 mmol/L (135-145) 02/14/25 06:31
Potassium 3.6 mmol/L (3.5-5.1) 02/14/25 06:31
BUN 21 mg/dl (9-20) H 02/14/25 06:31
Creatinine 0.9 mg/dL (0.7-1.3) 02/14/25 06:31
Glucose 85 mg/dl (70-99) 02/14/25 06:31
Troponins
02/12/25
00:36
Troponin I 0.016
Vital Signs and I&O:
Vital Signs
Temp Pulse Resp BP Pulse Ox
98.1 F 78 16 114/68 96
02/14/25 07:15 02/14/25 07:15 02/14/25 07:15 02/14/25 07:15 02/14/25 09:18
Vital Signs
Temp Pulse Resp BP Pulse Ox
98.1 F 78 16 114/68 96
02/14/25 07:15 02/14/25 07:15 02/14/25 07:15 02/14/25 07:15 02/14/25 09:18
Intake & Output
02/12/25 02/13/25 02/14/25 02/15/25
06:59 06:59 06:59 06:59
Intake Total 2000 / 2000 960 / 960
Output Total 800 / 800 950 / 950 1600 / 1600
Balance -800 / -800 1050 / 1050 -640 / -640
Physical Exam
Physical Exam
GEN: No distress, awake, lying in bed
HEENT: supple, anicteric, mmm
LUNGS: CTA b/l, no wheezes/rales
CV: irreg, S1/S2, 1/6 murmur
EXT: No clubbing, cyanosis, or edema
NEURO: Gross non-focal
SKIN: Warm, dry, no rash
[2025-02-14] MEDS: OMNICEF 300 MG PO ×2 (11:34→20:23)
--- NOTE | 2025-02-14 12:22 | W.PN.HOSP.TC ---
Today's Communication/Plan
-
Discharge planning
Assessment / Plan
Assessment / Plan
Gen-awake, alert, NAD, not oriented
HEENT-NC, AT, anicteric, clear oral mm
Neck-supple
CV-reg, no M, +S1/S2
Lungs-clear B/L
Abd-soft, NT, ND
Ext-no edema
Musculoskeletal-no cyanosis, clubbing
Skin-warm and dry
Neuro-grossly non-focal
Psych-calm, cooperative
Acute TME -due to sepsis, UTI. Has baseline dementia, not formally diagnosed. Discussed with sister. Suspect TME has resolved and mental status is back to baseline.
Sepsis due to catheter associated UTI -sepsis present on admission. Sepsis improved. WBC count improved significantly. Afebrile.
Hemodynamically stable and improving. WBCs trending down. Afebrile.
1 out of 2 blood cultures and urine culture positive for Proteus mirabilis.
Suspect UTI triggered by dislodgment of chronic Ambriz catheter. Ambriz catheter replaced in the emergency room on arrival.
Patient pulled out his IV catheter. Will transition to oral antibiotics, especially in light of clinical improvement.
Rapid atrial fibrillation/paroxysmal atrial fibrillation -rates now improved. Initiated on amiodarone, will continue per cardiology. Continue Pradaxa.
TSH 0.62.
DEANDRE -suspect due to sepsis, volume depletion. DEANDRE resolved.
Hyponatremia - improved.
Acute on chronic anemia -hemoglobin 11.5 on admission, now stable at 8.7. No evidence of bleeding clinically. Stools have been brown.
Not iron deficient based on labs. B12 and folic acid normal.
Chronic heart failure -unknown EF. Stable.
Chronic orthostatic hypotension -continue fludrocortisone, midodrine. Add TEDs stockings.
ICD
Essential hypertension -stable.
Chronic urinary retention/BPH -maintain Ambriz catheter.
Dementia -unknown type. Will need outpatient follow-up and evaluation. Patient's sister mentioned that he has had progressive memory loss over the past 6 months.
Full code
Dispo -medically stable for discharge to SNF. Case management aware. Okay for discharge as per cardiology.
Updated sister Heidi on the phone.
Anticipated Discharge: Within 24 hours
Subjective/Interval History
-
Date of Service: February 14, 2025
Patient seen and examined, no complaints.
Objective Data
-
Labs:
Laboratory Results
02/14/25
06:31
WBC 11.8 H
Hgb 8.7 L
Hct 25.9 L
Plt Count 226
Sodium 135
Potassium 3.6
Chloride 103
Carbon Dioxide 26
BUN 21 H
Creatinine 0.9
Glucose 85
Calcium 7.5 L
Vital Signs:
Vital Signs
Temp Pulse Resp BP Pulse Ox
98.1 F 78 16 114/68 96
02/14/25 07:15 02/14/25 07:15 02/14/25 07:15 02/14/25 07:15 02/14/25 09:18
I&O
02/13/25 02/14/25 02/15/25
06:59 06:59 06:59
Intake Total 1999 / 1999 960 / 960
Output Total 950 / 950 1600 / 1600
Balance 1050 / 1050 -640 / -640
Review of Systems
-
History Source: Patient
All other systems: Reviewed and negative
--- NOTE | 2025-02-14 16:57 | CM ---
Spoke with sister Heidi [phone] she confirmed that prior to admission he was at [facility] for SNF .
Prior to rehab he lived alone in a triplex . He was driving and independent but sister said more confused.
Pt and Sister agreed to return to [facility] for rehab.
Referral placed in care port but also faxed clinical to [phone] . [facility]zieb[facility] castro was not in but left message with nursing to [facility] for SNF referral.
PLAN To [facility] SNF after accepted.
[2025-02-14] MEDS: SENOKOT 17.2 MG PO (21:20)
[2025-02-15 03:06] VITALS: BP 120/86
[2025-02-15 05:58] VITALS: BMI 22.8
[2025-02-15 07:30] VITALS: BP 133/91
[2025-02-15] MEDS: OMNICEF 300 MG PO ×2 (08:07→20:46)
[2025-02-15] MEDS: PROSCAR 5 MG PO (08:08)
[2025-02-15] MEDS: PROTONIX 20 MG PO (08:08)
[2025-02-15] MEDS: TOPROL XL 12.5 MG PO (08:09)
[2025-02-15] MEDS: PRADAXA 150 MG PO ×2 (08:09→20:44)
[2025-02-15] MEDS: PACERONE 200 MG PO ×2 (08:09→20:47)
[2025-02-15] MEDS: MIRALAX 17 GRAMS PO (08:17)
[2025-02-15 08:45] LABS: Hematocrit 27.9 % (39.0-52.0); Hemoglobin 9.4 g/dL (13.0-18.0); Mean Corp Hgb Conc. 33.7 g/dL (33.0-37.0); Mean Corpuscular Volume 92.7 fL (80.0-94.0); Nucleated Red Blood Cells % 0 % (-); Platelet Count 246 10^3/uL (130-400); Red Cell Dist. Width 13.5 % (11.5-14.5)
--- NOTE | 2025-02-15 11:39 | W.PN.HOSP.TC ---
Today's Communication/Plan
-
Discharge planning
Assessment / Plan
Assessment / Plan
Gen-awake, alert, NAD, not oriented
HEENT-NC, AT, anicteric, clear oral mm
Neck-supple
CV-reg, no M, +S1/S2
Lungs-clear B/L
Abd-soft, NT, ND
Ext-no edema
Musculoskeletal-no cyanosis, clubbing
Skin-warm and dry
Neuro-grossly non-focal
Psych-calm, cooperative
Acute TME -due to sepsis, UTI. Has baseline dementia, not formally diagnosed. Discussed with sister. Suspect TME has resolved and mental status is back to baseline.
Sepsis due to catheter associated UTI -sepsis present on admission. Sepsis improved. WBC count improved significantly. Afebrile.
Hemodynamically stable and improving. WBCs trending down. Afebrile.
1 out of 2 blood cultures and urine culture positive for Proteus mirabilis.
Suspect UTI triggered by dislodgment of chronic Ambriz catheter. Ambriz catheter replaced in the emergency room on arrival.
Continue cefdinir.
Rapid atrial fibrillation/paroxysmal atrial fibrillation -rates now improved. Initiated on amiodarone, will continue per cardiology. Continue Pradaxa.
TSH 0.62.
DEANDRE -suspect due to sepsis, volume depletion. DEANDRE resolved.
Hyponatremia - improved.
Acute on chronic anemia -hemoglobin 11.5 on admission, now stable at 9.4. No evidence of bleeding clinically. Stools have been brown.
Not iron deficient based on labs. B12 and folic acid normal.
Chronic heart failure -unknown EF. Stable.
Chronic orthostatic hypotension -continue fludrocortisone, midodrine. Add TEDs stockings.
ICD
Essential hypertension -stable.
Chronic urinary retention/BPH -maintain Ambriz catheter.
Dementia -unknown type. Will need outpatient follow-up and evaluation. Patient's sister mentioned that he has had progressive memory loss over the past 6 months.
Full code
Dispo -medically stable for discharge to SNF. Case management aware. Okay for discharge as per cardiology.
Anticipated Discharge: Within 24 hours
Subjective/Interval History
-
Date of Service: February 15, 2025
Patient seen and examined, no complaints.
Objective Data
-
Labs:
Laboratory Results
02/15/25
07:39
WBC 9.6
Hgb 9.4 L
Hct 27.9 L
Plt Count 246
Vital Signs:
Vital Signs
Temp Pulse Resp BP Pulse Ox
98 F 99 18 133/91 95
02/15/25 07:30 02/15/25 08:08 02/15/25 07:30 02/15/25 08:08 02/15/25 08:00
I&O
02/14/25 02/15/25 02/16/25
06:59 06:59 06:59
Intake Total 960 / 960 1000 / 1000
Output Total 1600 / 1600 900 / 900
Balance -640 / -640 100 / 100
Review of Systems
-
History Source: Patient
All other systems: Reviewed and negative
[2025-02-15 11:44] VITALS: BP 114/71
[2025-02-15 14:55] LABS: Blood Urea Nitrogen 18 mg/dl (9-20); Calcium 7.7 mg/dl (8.4-10.2); Carbon Dioxide 26 mmol/L (22-30); Chloride 104 mmol/L (98-107); Estimated Creatinine Clearance 80 ml/min; Glucose 102 mg/dl (70-99); Magnesium 1.9 mg/dl (1.6-2.3); Potassium 3.1 mmol/L (3.5-5.1); Sodium 134 mmol/L (135-145); eGFR > 60.00
[2025-02-15 15:54] VITALS: BP 125/72
[2025-02-15 19:33] VITALS: BP 113/63
[2025-02-15] MEDS: KCL ELIXIR 40 MEQ PO (20:44)
[2025-02-15] MEDS: SENOKOT 17.2 MG PO (21:25)
[2025-02-15 23:28] VITALS: BP 129/80
[2025-02-16 03:04] VITALS: BP 123/76
[2025-02-16 06:00] VITALS: BMI 22.5
[2025-02-16 06:53] LABS: Hematocrit 27.8 % (39.0-52.0); Hemoglobin 9.1 g/dL (13.0-18.0); Mean Corp Hgb Conc. 32.7 g/dL (33.0-37.0); Mean Corpuscular Volume 91.7 fL (80.0-94.0); Nucleated Red Blood Cells % 0 % (-); Platelet Count 206 10^3/uL (130-400); Red Cell Dist. Width 13.5 % (11.5-14.5)
[2025-02-16 07:16] VITALS: BP 123/73
[2025-02-16] MEDS: OMNICEF 300 MG PO ×2 (08:32→20:58)
[2025-02-16] MEDS: PROTONIX 20 MG PO (08:32)
[2025-02-16] MEDS: MIRALAX 17 GRAMS PO (08:32)
[2025-02-16] MEDS: TOPROL XL 12.5 MG PO (08:33)
[2025-02-16] MEDS: PACERONE 200 MG PO ×2 (08:33→20:58)
[2025-02-16] MEDS: PROSCAR 5 MG PO (08:34)
[2025-02-16] MEDS: PRADAXA 150 MG PO ×2 (08:34→20:57)
[2025-02-16 08:55] LABS: ALT (SGPT) 12 U/L (0-50); AST (SGOT) 17 U/L (17-59); Albumin 2.3 g/dl (3.5-5.0); Alkaline Phosphatase 75 U/L (38-126); Blood Urea Nitrogen 18 mg/dl (9-20); Calcium 7.8 mg/dl (8.4-10.2); Carbon Dioxide 25 mmol/L (22-30); Chloride 106 mmol/L (98-107); Estimated Creatinine Clearance 79 ml/min; Glucose 96 mg/dl (70-99); Potassium 4.2 mmol/L (3.5-5.1); Sodium 135 mmol/L (135-145); Total Protein 5.4 g/dl (6.3-8.2); eGFR > 60.00
--- NOTE | 2025-02-16 09:33 | CM ---
Spoke to pt at bedside about selecting additional SNFs. He deferred to his Sister. I spoke with the sister and she selected [facility]; referral placed. ALso provided Medicare 5-star compare report. Sister agreeable to review it when she comes
in tomorrow. List left on pt's windowsill
Plan: DC tp SNF when bed is avaialble; no auth needed
[2025-02-16 11:34] VITALS: BP 113/68
--- NOTE | 2025-02-16 11:35 | W.PN.HOSP.TC ---
Today's Communication/Plan
-
Discharge planning
Assessment / Plan
Assessment / Plan
Gen-awake, alert, NAD, not oriented
HEENT-NC, AT, anicteric, clear oral mm
Neck-supple
CV-reg, no M, +S1/S2
Lungs-clear B/L
Abd-soft, NT, ND
Ext-no edema
Musculoskeletal-no cyanosis, clubbing
Skin-warm and dry
Neuro-grossly non-focal
Psych-calm, cooperative
Acute TME -due to sepsis, UTI. Has baseline dementia, not formally diagnosed. Discussed with sister. Suspect TME has resolved and mental status is back to baseline.
Sepsis due to catheter associated UTI -sepsis present on admission, end-organ dysfunction of DEANDRE and acute encephalopathy. Sepsis improved. WBC now normal. Afebrile.
Hemodynamically stable and improving. WBCs trending down. Afebrile.
1 out of 2 blood cultures and urine culture positive for Proteus mirabilis.
Suspect UTI triggered by dislodgment of chronic Ambriz catheter. Ambriz catheter replaced in the emergency room on arrival.
Continue cefdinir.
Rapid atrial fibrillation/paroxysmal atrial fibrillation -rates now improved. Initiated on amiodarone, will continue per cardiology. Continue Pradaxa.
TSH 0.62.
DEANDRE -suspect due to sepsis, volume depletion. DEANDRE resolved.
Hyponatremia - improved.
Hypokalemia -improved. Magnesium 1.9.
Acute on chronic anemia -hemoglobin 11.5 on admission, now 9.1. No evidence of bleeding clinically. Stools have been brown.
Not iron deficient based on labs. B12 and folic acid normal. Monitor for now.
Chronic heart failure -unknown EF. Stable.
Chronic orthostatic hypotension -continue fludrocortisone, midodrine. Add TEDs stockings.
ICD
Essential hypertension -stable.
Chronic urinary retention/BPH -maintain Ambriz catheter.
Dementia -unknown type. Will need outpatient follow-up and evaluation. Patient's sister mentioned that he has had progressive memory loss over the past 6 months.
Full code
Dispo -medically stable for discharge to SNF. Case management aware. Okay for discharge as per cardiology.
Anticipated Discharge: Within 24 hours
Subjective/Interval History
-
Date of Service: February 16, 2025
Patient seen and examined. Complaining of diarrhea but nursing notes that he has not had a bowel movement.
Objective Data
-
Labs:
Laboratory Results
02/16/25 02/16/25
06:06 07:09
WBC 9.7
Hgb 9.1 L
Hct 27.8 L
Plt Count 206
Sodium 135
Potassium 4.2 D
Chloride 106
Carbon Dioxide 25
BUN 18
Creatinine 0.8
Glucose 96
Calcium 7.8 L
Total Bilirubin 0.8
AST 17
ALT 12
Alkaline Phosphatase 75
Vital Signs:
Vital Signs
Temp Pulse Resp BP Pulse Ox
98.7 F 79 18 113/68 95
02/16/25 07:16 02/16/25 11:34 02/16/25 11:34 02/16/25 11:34 02/16/25 11:34
I&O
02/15/25 02/16/25 02/17/25
06:59 06:59 06:59
Intake Total 1000 / 1000 620 / 620
Output Total 900 / 900 700 / 700
Balance 100 / 100 -80 / -80
Review of Systems
-
Unable to obtain full review of systems at this time due to: Dementia
History Source: Patient
All other systems: Reviewed and negative
--- NOTE | 2025-02-16 12:43 | W.PN.CARDCBS ---
Today's Communication / Plan
-
Heart rate overall seems well-controlled on low-dose metoprolol and amiodarone would continue on discharge
Stable cardiac status. We will sign off. Please recall as needed.
Impression / Plan
-
PCP: Kennedy Alejandro, DO
[employer] Mechanic: [facility]
Impression:
Presented 02/12/2025 with dislodged Johnson catheter from [facility]
Leukocytosis/fever
Hematuria
UTI
Obstructive uropathy
DEANDRE on CKD
Hypomagnesemia
Paroxysmal atrial fibrillation with rapid ventricular response
Recent admission to [facility] for obstructive uropathy/UTI January 2025
Paroxysmal Atrial fibrillation on anticoagulation with Pradaxa
[employer] biventricular pacemaker and AICD
Cardiomyopathy
Chronic heart failure with unknown ejection fraction, presumed reduced
Essential hypertension
Orthostatic hypotension
BPH with obstructive uropathy status post indwelling urinary cath
History of syncope and collapse
History of sick sinus syndrome
Gout
CKD
Obstructive uropathy
Echo 02/12/2025: EF 46%, moderate cLVH, mild to moderate MR, mild TR, estimated PAP 34 mmHg
Plan:
Presented with dislodged Johnson catheter and fever, admitted w/ UTI and DEANDRE
Also w/ rapid atrial fibrillation on arrival. Known h/o atrial fibrillation.
By review of telemetry heart rate is at goal less than 110 bpm
Would continue metoprolol XL 12.5 mg daily with amiodarone 200 mg twice daily for adjunct rate control
Continue Pradaxa for risk reduction of cardioembolic stroke
Chronically on midodrine and Florinef for orthostatic hypotension which have been continued here
We will sign off. He should follow-up with his primary manager garden at [facility].
HPI 02/12/2025: Patient is an 85-year-old male with past medical history significant for essential hypertension, cardiomyopathy, paroxysmal atrial fibrillation, status post biventricular AICD and defibrillator, on anticoagulation with dabigatran,
BPH, orthostatic hypotension brought to the emergency department 02/12/2025 from [facility] after he pulled out his johnson catheter. Unfortunately patient is poor historian and unable to provide history at time of this evaluation. I
did talk to his sister Heidi over the phone who reports he became ill in early December with what she reports was GI illness with nausea vomiting and diarrhea. He was admitted to [facility] in late December and was found to have
significant urinary retention with obstructive uropathy. He resided there for several weeks until he was transferred to [facility] 2 days ago to be closer to her. She reports his manager garden is at [facility]
([phone]. Per review of outpatient records patient was found to have obstructive uropathy requiring placement of indwelling Johnson catheter. He had DEANDRE and orthostatic hypotension with discontinuation of cardiac medications including
Jardiance, losartan and tamsulosin. Prior to his admissions he had been maintained on amiodarone and apparently this was discontinued as well during his recent hospitalization at [facility]. On presentation to emergency department he was found to
have a bouts of wide-complex tachycardia on telemetry. Troponin was negative. TSH, liver functions within normal limits. Mag found to be 1.7 and was repleted. His ICD was interrogated which shows he has been persistently in atrial fibrillation
since early December 2024. Per device he has had no ventricular events or ICD shocks. Chest x-ray showed no acute cardiopulmonary abnormality. Creatinine elevated at 2.4 on admission, patient was repleted with aggressive IV fluids with
improvement of creatinine to 1.8 given concern of tachycardia cardiology has been consulted
Progress Note - [employer] Mechanic
Subjective
Date of Service: February 16, 2025
No acute overnight events. Patiently reportedly with elevated heart rates during episode of agitation yesterday. Heart rate better controlled on review of telemetry. No cardiac complaints today.
Objective
Labs:
02/16/25 06:06
02/16/25 07:09
Labs
Hgb 9.1 g/dL (13.0-18.0) L 02/16/25 06:06
Hct 27.8 % (39.0-52.0) L 02/16/25 06:06
Plt Count 206 10^3/uL (130-400) 02/16/25 06:06
Sodium 135 mmol/L (135-145) 02/16/25 07:09
Potassium 4.2 mmol/L (3.5-5.1) D 02/16/25 07:09
BUN 18 mg/dl (9-20) 02/16/25 07:09
Creatinine 0.8 mg/dL (0.7-1.3) 02/16/25 07:09
Glucose 96 mg/dl (70-99) 02/16/25 07:09
Vital Signs and I&O:
Vital Signs
Temp Pulse Resp BP Pulse Ox
98.7 F 79 18 113/68 95
02/16/25 07:16 02/16/25 11:34 02/16/25 11:34 02/16/25 11:34 02/16/25 11:34
Vital Signs
Temp Pulse Resp BP Pulse Ox
98.7 F 79 18 113/68 95
02/16/25 07:16 02/16/25 11:34 02/16/25 11:34 02/16/25 11:34 02/16/25 11:34
Intake & Output
02/14/25 02/15/25 02/16/25 02/17/25
06:59 06:59 06:59 06:59
Intake Total 960 / 960 1000 / 1000 620 / 620
Output Total 1600 / 1600 900 / 900 700 / 700
Balance -640 / -640 100 / 100 -80 / -80
Physical Exam
Physical Exam
Gen: NAD, AA
HEENT: NC/AT, sclera anicteric
Neck: No JVD
CV: Irregular, NL s1/s2
Lungs: CTAB
Abd: S/ND
Ext: No LE edema
Skin: Warm, dry
Neuro: Non-focal
[2025-02-16 15:53] VITALS: BP 114/68
[2025-02-16 19:45] VITALS: BP 113/67
[2025-02-16] MEDS: SENOKOT 17.2 MG PO (20:59)
[2025-02-16 23:58] VITALS: BP 118/77
[2025-02-17 03:33] VITALS: BP 136/88
[2025-02-17 06:00] VITALS: BMI 22.8
[2025-02-17 07:52] VITALS: BP 128/82
[2025-02-17] MEDS: TOPROL XL 12.5 MG PO (09:16)
[2025-02-17] MEDS: PROTONIX 20 MG PO (09:16)
[2025-02-17] MEDS: MIRALAX 17 GRAMS PO (09:16)
[2025-02-17] MEDS: FLORINEF 0.1 MG PO (09:16)
[2025-02-17] MEDS: OMNICEF 300 MG PO ×2 (09:17→21:00)
[2025-02-17] MEDS: PACERONE 200 MG PO ×2 (09:17→21:20)
[2025-02-17] MEDS: PRADAXA 150 MG PO ×2 (09:17→21:00)
[2025-02-17] MEDS: PROSCAR 5 MG PO (09:18)
[2025-02-17 11:43] VITALS: BP 107/66
--- NOTE | 2025-02-17 12:43 | W.PN.HOSP.TC ---
Today's Communication/Plan
-
await placement
po abx for now
cont amiodarone
Assessment / Plan
Assessment / Plan
Gen-awake, alert, NAD, not oriented
HEENT-NC, AT, anicteric, clear oral mm
Neck-supple
CV-reg, no M, +S1/S2
Lungs-clear B/L
Abd-soft, NT, ND
Ext-no edema
Musculoskeletal-no cyanosis, clubbing
Skin-warm and dry
Neuro-grossly non-focal
Psych-calm, cooperative
Acute TME -due to sepsis, UTI. Has baseline dementia, not formally diagnosed. Suspect TME has resolved and mental status is back to baseline.
Sepsis due to catheter associated UTI -sepsis present on admission, end-organ dysfunction of DEANDRE and acute encephalopathy. Sepsis improved. WBC now normal. Afebrile.
Hemodynamically stable. WBCs trended down. Afebrile.
1 out of 2 blood cultures and urine culture positive for Proteus mirabilis.
Suspect UTI triggered by dislodgment of chronic Ambriz catheter. Ambriz catheter replaced in the emergency room on arrival.
Continue cefdinir.
Rapid atrial fibrillation/paroxysmal atrial fibrillation -rates now improved. Initiated on amiodarone, will continue per cardiology. Continue Pradaxa.
TSH 0.62.
DEANDRE -suspect due to sepsis, volume depletion. DEANDRE resolved.
Hyponatremia - improved.
Hypokalemia -improved.
Acute on chronic anemia -hemoglobin 11.5 on admission, now 9.1. No evidence of bleeding clinically. Stools have been brown.
Not iron deficient based on labs. B12 and folic acid normal. Monitor for now.
Chronic heart failure -unknown EF. Stable.
Chronic orthostatic hypotension -continue fludrocortisone, midodrine. Add TEDs stockings.
ICD
Essential hypertension -stable.
Chronic urinary retention/BPH -maintain Ambriz catheter.
Dementia -unknown type. Will need outpatient follow-up and evaluation. Patient's sister mentioned that he has had progressive memory loss over the past 6 months.
Full code
Dispo -medically stable for discharge to SNF. Case management aware.
Anticipated Discharge: Today
Subjective/Interval History
-
Date of Service: February 17, 2025
pleasantly confused
no chest pain or sob.
Objective Data
-
Vital Signs:
Vital Signs
Temp Pulse Resp BP Pulse Ox
98.7 F 79 18 107/66 97
02/17/25 11:43 02/17/25 11:43 02/17/25 11:43 02/17/25 11:43 02/17/25 12:16
I&O
02/16/25 02/17/25 02/18/25
06:59 06:59 06:59
Intake Total 620 / 620 900 / 900
Output Total 700 / 700 950 / 950
Balance -80 / -80 -50 / -50
[2025-02-17 15:58] VITALS: BP 106/68
--- NOTE | 2025-02-17 17:07 | CM ---
Spoke with [facility] she offered a bed for tomorrow.
Spoke with pt he is agreeable to SNF tomorrow.
Pt carlos need ambulance .
IMM reviewed with patient.IMM gregg don chart.
[facility]
report [phone] ext [phone]
fax [phone]
PLAN To [facility]
[2025-02-17 19:36] VITALS: BP 110/71
[2025-02-17] MEDS: SENOKOT 17.2 MG PO (21:19)
[2025-02-17 23:32] VITALS: BP 129/69
[2025-02-18 03:18] VITALS: BP 128/79
[2025-02-18 06:00] VITALS: BMI 22.6
[2025-02-18 07:58] VITALS: BP 129/83
[2025-02-18] MEDS: PROSCAR 5 MG PO (08:30)
[2025-02-18] MEDS: PRADAXA 150 MG PO (08:30)
[2025-02-18] MEDS: TOPROL XL 12.5 MG PO (08:30)
[2025-02-18] MEDS: OMNICEF 300 MG PO (08:30)
[2025-02-18] MEDS: MIRALAX 17 GRAMS PO (08:31)
[2025-02-18] MEDS: PACERONE 200 MG PO (08:31)
[2025-02-18] MEDS: PROTONIX 20 MG PO (08:31)
[2025-02-18 08:35] LABS: Blood Urea Nitrogen 13 mg/dl (9-20); Calcium 7.5 mg/dl (8.4-10.2); Carbon Dioxide 30 mmol/L (22-30); Chloride 101 mmol/L (98-107); Estimated Creatinine Clearance 79 ml/min; Glucose 83 mg/dl (70-99); Potassium 3.5 mmol/L (3.5-5.1); Sodium 134 mmol/L (135-145); eGFR > 60.00
[2025-02-18 09:51] VITALS: BP 133/75; PULSE 78; O2SAT 98
--- NOTE | 2025-02-18 10:42 | CM ---
Spoke with [facility] she offered a bed for today
Spoke with pt he is agreeable to SNF today. Spoke with sister Heidi she agrees with dc to SNF today .
Pt will need ambulance .Medcial nec form completed
[facility]
report [phone] ext [phone]
fax [phone]
PLAN To [facility]
--- NOTE | 2025-02-18 11:20 | W.PN.HOSP.TC ---
Today's Communication/Plan
-
PO ABX
dc to snf
Assessment / Plan
Assessment / Plan
Gen-awake, alert, NAD, not oriented
HEENT-NC, AT, anicteric, clear oral mm
Neck-supple
CV-reg, no M, +S1/S2
Lungs-clear B/L
Abd-soft, NT, ND
Ext-no edema
Musculoskeletal-no cyanosis, clubbing
Skin-warm and dry
Neuro-grossly non-focal
Psych-calm, cooperative
Acute TME -due to sepsis, UTI. Has baseline dementia, not formally diagnosed. Suspect TME has resolved and mental status is back to baseline.
Sepsis due to catheter associated UTI -sepsis present on admission, end-organ dysfunction of DEANDRE and acute encephalopathy. Sepsis improved. WBC now normal. Afebrile.
Hemodynamically stable. WBCs trended down. Afebrile.
1 out of 2 blood cultures and urine culture positive for Proteus mirabilis.
Suspect UTI triggered by dislodgment of chronic Ambriz catheter. Ambriz catheter replaced in the emergency room on arrival.
Continue cefdinir.
Rapid atrial fibrillation/paroxysmal atrial fibrillation -rates now improved. Initiated on amiodarone, will continue per cardiology 200mg BID. Continue Pradaxa.
TSH 0.62.
DEANDRE -suspect due to sepsis, volume depletion. DEANDRE resolved.
Hyponatremia - improved.
Hypokalemia -improved.
Acute on chronic anemia -hemoglobin 11.5 on admission, now 9.1. No evidence of bleeding clinically.
Not iron deficient based on labs. B12 and folic acid normal. Monitor for now.
Chronic heart failure -unknown EF. Stable.
Chronic orthostatic hypotension -continue fludrocortisone, midodrine. Add TEDs stockings.
ICD
Essential hypertension -stable.
Chronic urinary retention/BPH -maintain Ambriz catheter.
Dementia -unknown type. Will need outpatient follow-up and evaluation. Patient's sister mentioned that he has had progressive memory loss over the past 6 months.
Full code
Dispo -medically stable for discharge to SNF. Case management aware.
More than 30 minutes spent in discharge including
Final examination of the patient
Summarizing hospital stay
Instructions for continuing care to all relevant caregivers
Preparation of discharge records, prescriptions, and referral forms
Total time spent (in minutes): 55
Anticipated Discharge: Today
Subjective/Interval History
-
Date of Service: February 18, 2025
no overnight events
denies cp or sob
remains afebrile
Objective Data
-
Labs:
Laboratory Results
02/18/25
06:24
Sodium 134 L
Potassium 3.5
Chloride 101
Carbon Dioxide 30
BUN 13
Creatinine 0.8
Glucose 83
Calcium 7.5 L
Vital Signs:
Vital Signs
Temp Pulse Resp BP Pulse Ox
98.8 F 95 18 129/83 97
02/18/25 07:58 02/18/25 07:58 02/18/25 07:58 02/18/25 07:58 02/18/25 09:43
I&O
02/17/25 02/18/25 02/19/25
06:59 06:59 06:59
Intake Total 900 / 900 960 / 960
Output Total 950 / 950 700 / 700
Balance -50 / -50 260 / 260
--- NOTE | 2025-02-18 11:21 | W.DCSUMMARY ---
Discharge Summary
Discharge Data
Date of Admission: 02/12/25
Date of Discharge: 02/18/25
-
Pending Results: No
Hospital Course
85-year-old male past medical history of chronic anemia, chronic heart failure, chronic orthostatic hypotension, ICD placement, chronic urinary retention, BPH, dementia unknown type who is here with acute toxic metabolic encephalopathy. Patient was
found to have sepsis due to catheter associated tract infection. Patient monitored blood cultures were also found to be positive. Suspect UTI triggered by dislodgment of chronic Ambriz catheter. Ambriz catheter was replaced in the emergency room
and arrival. IV antibiotics was continued. Patient with significant improvement in mentation. Patient with rapid onset of atrial fibrillation. Toprol dose was decreased and was started on amiodarone. Pradaxa was continued. Patient will need to
follow-up outpatient with cardiology. Patient also recommended to follow-up with neurologist. Patient was referred physical and Occupational Therapy and be discharged to shelter facility on p.o. antibiotics.
Discharge Plan
-
Patient Disposition: Assisted/SNF
Discharge Diagnosis/Procedures: Acute toxic metabolic encephalopathy
Sepsis due to catheter associated urinary tract infection and bacteremia
Rapid atrial fibrillation
Acute kidney injury
Hyponatremia
Hypokalemia
Diet: Regular
Activity: As tolerated
Driving Restrictions: Not until seen by your Dr
Activity Restrictions/Additional Instructions:
Please take medications as prescribed/recommended and follow up with primary care provider and/or other healthcare provider involved in your care for refills and/or further adjustment to your medication regimen as necessary. �
Referrals:
Ganga Seth MD [Active, Neurology]
Referral Note: Follow-up for memory loss. Suspected dementia.
Kennedy Alejandro DO [Family Provider, Internal Medicine]
Vishal Keen MD [Active, Cardiology] - in one to two months
Additional Discharge Medication Instructions: Toprol dose has been decreased to 12.5mg
Prescriptions:
New
amiodarone [Pacerone] 200 mg Tablet
200 mg PO BID Qty: 60 0RF
cefdinir 300 mg Capsule
300 mg PO Q12 Qty: 20 0RF
Continued
sennosides [senna] 8.6 mg Tablet
17.2 mg PO HS
polyethylene glycol 3350 [Miralax] 17 gram Powder In Packet
17 g PO DAILY
midodrine 5 mg Tablet
15 mg PO TID
pantoprazole 20 mg Tablet,Delayed Release (Dr/Ec)
20 mg PO DAILY
fluticasone propionate 50 mcg/actuation [place],Suspension
2 spray INTRANASAL DAILY PRN (Reason: Reduction Of Transepidermal Water Loss)
fludrocortisone 0.1 mg Tablet
0.1 mg PO MOWEFR
finasteride 5 mg Tablet
5 mg PO DAILY
carboxymethylcellulose Granules
1 ea MISCELLANEOUS QID
Rx Instructions:
0.5%
dabigatran etexilate 150 mg Capsule
150 mg PO BID
Changed
metoprolol succinate 25 mg Tablet Extended Release 24 Hr
12.5 mg PO DAILY Qty: 0 0RF
Discharge Orders:
Discharge Patient (As Directed); Ordered 02/18/25
Ordered By: Jose Caldwell
Discharge Date and Time
Discharge Date/Time: 02/18/25 14:47
Print Language: CONGOLESE
[2025-02-18 11:35] VITALS: BP 119/70
== END 2025-02-18 14:47 | DRG 698 ==
LOC: 4 EAST ACU 15:43
PROVIDERS: Hospitalist; Internal Medicine; ADMITTING PHYSICIAN Internal Medicine; ATTENDING PHYSICIAN Hospitalist; EMERGENCY PHYSICIAN Emergency Medicine; FAMILY PHYSICIAN Internal Medicine; OTHER PHYSICIAN Internal Medicine Cardiovascular Disease
DX: T83.518A Infection and inflammatory reaction due to other urinary catheter, initial encounter (principal); A41.9 Sepsis, unspecified organism; G92.8 Other toxic encephalopathy; R65.20 Severe sepsis without septic shock; N39.0 Urinary tract infection, site not specified; N17.9 Acute kidney failure, unspecified; E87.1 Hypo-osmolality and hyponatremia; I13.0 Hypertensive heart and chronic kidney disease with heart failure and stage 1 through stage 4 chronic kidney disease, or unspecified chronic kidney disease; I42.8 Other cardiomyopathies; N13.8 Other obstructive and reflux uropathy; I47.10 Supraventricular tachycardia, unspecified; I48.0 Paroxysmal atrial fibrillation; Y84.6 Urinary catheterization as the cause of abnormal reaction of the patient, or of later complication, without mention of misadventure at the time of the procedure; E87.6 Hypokalemia; F03.90 Unspecified dementia, unspecified severity, without behavioral disturbance, psychotic disturbance, mood disturbance, and anxiety; I95.1 Orthostatic hypotension; Z95.810 Presence of automatic (implantable) cardiac defibrillator; N18.9 Chronic kidney disease, unspecified; Z79.01 Long term (current) use of anticoagulants; N40.1 Benign prostatic hyperplasia with lower urinary tract symptoms; I49.5 Sick sinus syndrome; Z88.8 Allergy status to other drugs, medicaments and biological substances; E78.5 Hyperlipidemia, unspecified; E83.42 Hypomagnesemia; K21.9 Gastro-esophageal reflux disease without esophagitis; T83.021A Displacement of indwelling urethral catheter, initial encounter; Z66 Do not resuscitate; Z79.52 Long term (current) use of systemic steroids; Z79.899 Other long term (current) drug therapy; I44.7 Left bundle-branch block, unspecified
CPT/HCPCS: 51702; 51798; 71046; 80048; 80053; 81003; 81015; 82533; 82607; 82728; 82746; 83540; 83550; 83605; 83735; 84300; 84443; 84484; 85025; 85027; 87040; 87077; 87086; 87154; 87186; 87205; 93005; 93306; 96365; 97116; 97163; 97166; 99285